=== PATIENT | male | born 1960 | race Two or more races ===

== ENCOUNTER 2019-12-08 16:02 | Emergency (ER) | payer MEDICARE ==
[~2019-12-08] VITALS: Ht 172.7 cm; Wt 181.9 kg
--- NOTE | 2019-12-08 16:40 | NUR ---
PT IN HOSPITAL GOWN. PT PLACED ON CARDIAC AND VITALS MONITORS. PT ABLE TO AMBULATE STEADILY FOR SHORT DISTANCES IN ROOM.
--- NOTE | 2019-12-08 17:39 | NUR ---
PT RESTING CALMLY IN BED, WATCHING SHOWS ON PHONE. NO STATED COMPLAINTS AT THIS TIME.
[2019-12-08 17:54] LABS: BASOPHILS # (AUTO) 0.07 x10^3/uL (0-0.1); BASOPHILS % (AUTO) 1 % (0-1); EOSINOPHILS # (AUTO) 0.59 x10^3/uL (0-0.4); EOSINOPHILS % (AUTO) 6 % (1-7); LYMPHOCYTES # (AUTO) 2.66 x10^3/uL (1-3.4); LYMPHOCYTES % (AUTO) 28 % (22-44); MD NO; MEAN CORPUSCULAR HEMOGLOBIN 29.4 pg (27.5-34.5); MEAN CORPUSCULAR HGB CONC 33.1 g/dL (33.2-36.2); MEAN CORPUSCULAR VOLUME 88.8 fL (81-97); MEAN PLATELET VOLUME 8.9 fL (7.4-10.4); MONOCYTES # (AUTO) 0.81 x10^3/uL (0.2-0.8); MONOCYTES % (AUTO) 9 % (2-9); NEUTROPHILS # (AUTO) 5.47 x10^3/uL (1.8-6.8); NEUTROPHILS % (AUTO) 57 % (42-75); PLATELET COUNT 277 x10^3/uL (130-400); RED BLOOD COUNT 4.83 x10^6/uL (4.38-5.82)
[2019-12-08 18:01] LABS: ALBUMIN 3.2 g/dL (3.4-5.0); ANION GAP 8 mmol/L (5-15); CALCIUM 8.3 mg/dL (8.5-10.1); CHLORIDE 108 mmol/L (98-107)
[2019-12-08 18:06] LABS: ALANINE AMINOTRANSFERASE 31 U/L (12-78); ALKALINE PHOSPHATASE 113 U/L (45-117); BILIRUBIN,TOTAL 0.5 mg/dL (0.2-1.0); CREATININE 0.83 mg/dL (0.7-1.3); TOTAL PROTEIN 8.5 g/dL (6.4-8.2); TROPONIN I < 0.015 ng/mL (0.000-0.045)
--- NOTE | 2019-12-08 18:57 | NUR ---
BEDSIDE REPORT TO [facility]
[2019-12-08 20:00] VITALS: BP 159/80
[2019-12-08 20:08] LABS: TROPONIN I < 0.015 ng/mL (0.000-0.045)
== END 2019-12-08 20:40 | disposition home or self-care (01) ==
LOC: ED 18:49
DX: R07.89 Other chest pain (principal); I10 Essential (primary) hypertension; E11.9 Type 2 diabetes mellitus without complications; E78.5 Hyperlipidemia, unspecified
CPT/HCPCS: 36415; 71045; 80053; 83880; 84484; 85025; 93005; 99285